=== PATIENT | female | born 1955 | race Caucasian/White ===

== ENCOUNTER 2018-02-04 20:20 | Inpatient (IN) | payer OTHER ==
[~2018-02-04] VITALS: Ht 160 cm; Wt 75.5 kg
[~2018-02-04 20:20] MED LIST: ACCUPRIL5 MG PO; ADVAIR 100/501 DISK IH; ADVAIR IH; ALBUTEROL PO; ALBUTEROL SULF8.5 GM IH; AMBIEN5 M1 PO; AMBIEN5 MG PO; AMITRIPTYLINE H50 M1 PO; AMITRIPTYLINE H50 MG PO; ASPIR 8181 M1 PO; AUGMENTIN875 MG PO; Advair HFA 115/21 IH; Ambien PO; Aspirin E.C. PO; Augmentin PO; BUPROPION HCL150 M2 PO; CEFTIN500 MG PO; CITALOPRAM HBR40 M1 PO; Duragesic TD; ELAVIL50 MG PO; ENDOCET 5-3251 EACH PO; Elavil PO; FISH OIL CONC1 EACH PO; FLORASTOR250 MG PO; Flexeril PO; GABAPENTIN300 MG PO; GLUCOPHAGE1000 MG PO; GLUCOPHAGE500 M1 PO; Glucophage PO; HYDROCODON-ACE1 EAC5 PO; JANUVIA100 MG PO; LISINOP/HCTZ TAB 20-; LOPRESSOR25 MG PO; LOW DOSE ASPIRI81 M2 PO; Levaquin PO; Lopressor PO; METOPROLOL SUCC25 MG PO; METOPROLOL TART25 MG PO; MOBIC15 MG PO; NEURONTIN300 MG PO; NOVOLIN INJ 70/30 SQ; NOVOLIN,HU100 UNITS/ SC; NOVOLOG MI100 UNIT/3 SQ; NOVOLOG MI100 UNIT/4 SQ; NOVOLOG MI100 UNIT/M SC; Neurontin PO; OMEGA-3 1,0001 EACH PO; OMEPRAZOLE20 M2 PO; Omega III EPA + DHA PO; PERCOCET 10/1 TABLET PO; PRADAXA150 MG PO; PRILOSEC20 MG PO; PRINIVIL5 MG PO; PROAIR HFA8.5 GM IH; PROTONIX40 MG PO; Percocet 5/325,Endoc PO; Pradaxa PO; Proventil,Ventolin H IH; SIMVASTATIN40 MG PO; SIMVASTATIN80 M1 PO; TYLENOL REGULA325 MG PO; VENTOLIN HFA18 GM IH; Wellbutrin SR PO; ZESTORETIC 20-1 EAC1 PO; ZETIA10 MG PO; ZOFRAN8 MG PO; ZOLPIDEM TARTRAT5 MG PO; Zestoretic,Prinzide PO; Zetia PO; celeXA PO
[2018-02-04 21:05] LABS: BASOPHIL (%) 0.4 % (0-1); BASOPHIL COUNT 0.1 K/uL (0-0.1); EOSINOPHIL (%) 0.5 % (0-5); EOSINOPHIL COUNT 0.1 K/uL (0-0.3); HEMATOCRIT 31.9 % (36.0-46.0); HEMOGLOBIN 10.1 G/DL (11.9-15.5); IMMATURE GRANULOCYTE (%) 0.3 % (0.0-0.7); LYMPHOCYTE (%) 23.5 % (15-42); LYMPHOCYTE COUNT 3.1 K/uL (1.0-2.8); MCH 25.7 PG (29.0-34.0); MCHC 31.7 G/DL (30.0-36.0); MCV 81.2 FL (83-99); MONOCYTE (%) 8.2 % (3-12); MONOCYTE COUNT 1.1 K/uL (0-0.8); NEUTROPHIL (%) 67.1 % (45-76); NEUTROPHIL COUNT 8.8 K/uL (1.8-6.4); PLATELET COUNT 298 K/uL (156-360); RBC DIS.WIDTH-CV 17.7 % (11.8-14.6); RBC DIS.WIDTH-SD 52.4 % (39-53); RED BLOOD COUNT 3.93 M/uL (3.80-5.20); WHITE BLOOD COUNT 13.1 K/uL (4.1-10.2)
[2018-02-04 21:15] LABS: CHLORIDE 107 mEq/L (99-109); POTASSIUM 4.8 mEq/L (3.7-5.4); SODIUM 137 mEq/L (136-147)
[2018-02-04 21:16] LABS: GLUCOSE 248 mg/dL (70-99)
[2018-02-04 21:20] LABS: CREATININE 0.9 mg/dL (0.6-1.3); GFR ESTIMATE (CALCULATED) > 59 mL/min/
[2018-02-04 21:21] LABS: UREA NITROGEN (BUN) 19 mg/dL (9-23)
[2018-02-04 21:27] LABS: TROP-I INTERPRETATION NEGATIVE; TROPONIN-I 0.01 ng/mL (0.0-0.30)
[2018-02-05] MEDS ORDERED: FLONASE16 G1 BOTH NARES (02:11)
[2018-02-05] MEDS ORDERED: LEVEMIR100 UNIT/2 SC (02:11)
[2018-02-05] MEDS ORDERED: VENTOLIN HFA18 GM IH (02:12)
[2018-02-05] MEDS ORDERED: ZANAFLEX4 MG PO (02:16)
[2018-02-05] MEDS ORDERED: EZETIMIBE10 MG PO (02:17)
[2018-02-05] MEDS ORDERED: PRADAXA150 MG PO (02:17)
[2018-02-05] MEDS ORDERED: XYZAL5 MG PO (02:21)
[2018-02-05] MEDS ORDERED: ADVAIR 250/501 DISK IH (02:22)
[2018-02-05 03:40] VITALS: BP 132/64
[2018-02-05 04:35] LABS: MCH 25.8 PG (29.0-34.0); MCHC 32.3 G/DL (30.0-36.0); MCV 80.1 FL (83-99); PLATELET COUNT 313 K/uL (156-360); RBC DIS.WIDTH-CV 17.4 % (11.8-14.6); RBC DIS.WIDTH-SD 50.7 % (39-53); RED BLOOD COUNT 3.87 M/uL (3.80-5.20); WHITE BLOOD COUNT 11.6 K/uL (4.1-10.2)
[2018-02-05 04:44] LABS: ALBUMIN 3.7 g/dL (3.2-4.8)
[2018-02-05 04:46] LABS: CHLORIDE 104 mEq/L (99-109); POTASSIUM 4.1 mEq/L (3.7-5.4); SODIUM 137 mEq/L (136-147)
[2018-02-05 04:47] LABS: TOTAL PROTEIN 6.7 g/dL (6.4-8.3)
[2018-02-05 04:48] LABS: GLUCOSE 237 mg/dL (70-99)
[2018-02-05 04:49] LABS: TOTAL BILIRUBIN 0.6 mg/dL (0.0-1.0)
[2018-02-05 04:50] LABS: ALKALINE PHOSPHATASE 73 IU/L (3-129)
[2018-02-05 04:52] LABS: AST (GOT) 13 IU/L (2-34); CREATININE 0.9 mg/dL (0.6-1.3); DIRECT BILIRUBIN 0.3 mg/dL (0.0-0.3); GFR ESTIMATE (CALCULATED) > 59 mL/min/
[2018-02-05 04:53] LABS: ALT (GPT) 15 IU/L (3-49); UREA NITROGEN (BUN) 19 mg/dL (9-23)
[2018-02-05 04:56] LABS: TROP-I INTERPRETATION NEGATIVE; TROPONIN-I 0.01 ng/mL (0.0-0.30)
[2018-02-05 07:56] LABS: THYROTROPIN (TSH) 1.5 MIU/L (0.4-5.5)
[2018-02-05 08:30] VITALS: BP 141/66
[2018-02-05 09:53] LABS: TROP-I INTERPRETATION NEGATIVE; TROPONIN-I < 0.01 ng/mL (0.0-0.30)
[2018-02-05 10:41] LABS: HEMOGLOBIN A1c (GLYCOHEMOGLOB) 12.8 % (Below 5.7)
[2018-02-05 12:36] VITALS: BP 149/67
[2018-02-05 16:20] VITALS: BP 124/60
[2018-02-05 21:00] VITALS: BP 144/64
[2018-02-06 01:05] VITALS: BP 114/55
[2018-02-06 05:27] VITALS: BP 136/62
[2018-02-06 08:00] VITALS: BP 130/60
[2018-02-06 08:33] LABS: HEMATOCRIT 33.2 % (36.0-46.0); HEMOGLOBIN 10.4 G/DL (11.9-15.5); MCH 24.9 PG (29.0-34.0); MCHC 31.3 G/DL (30.0-36.0); MCV 79.4 FL (83-99); PLATELET COUNT 355 K/uL (156-360); RBC DIS.WIDTH-CV 17.8 % (11.8-14.6); RBC DIS.WIDTH-SD 51.9 % (39-53); RED BLOOD COUNT 4.18 M/uL (3.80-5.20); WHITE BLOOD COUNT 14.6 K/uL (4.1-10.2)
[2018-02-06 08:53] LABS: ALBUMIN 3.9 G/DL (3.2-4.8); ALKALINE PHOSPHATASE 66 IU/L (3-129); ALT (GPT) 11 IU/L (3-49); AST (GOT) 11 IU/L (2-34); CHLORIDE 103 MEQ/L (99-109); CREATININE 0.8 MG/DL (0.6-1.3); GFR ESTIMATE (CALCULATED) > 59 mL/min/; GLUCOSE 192 mg/dL (70-99); POTASSIUM 4.1 MEQ/L (3.7-5.4); SODIUM 137 MEQ/L (136-147); TOTAL BILIRUBIN 0.5 MG/DL (0.0-1.0); TOTAL PROTEIN 6.8 G/DL (6.4-8.3)
[2018-02-06 08:54] LABS: UREA NITROGEN (BUN) 32 mg/dL (9-23)
[2018-02-06 12:00] VITALS: BP 124/57
[2018-02-06] MEDS ORDERED: NOVOLOG 10100 UNITS/ SC (14:34)
[2018-02-06] MEDS ORDERED: FUROSEMIDE40 MG PO (15:19)
[2018-02-06] MEDS ORDERED: LISINOPRIL20 MG PO (15:19)
[2018-02-06] MEDS ORDERED: LORATADINE10 M2 PO (15:19)
[2018-02-06] MEDS ORDERED: SPIRIVA RESPIMAT4 GM IH (15:19)
[2018-02-06] MEDS ORDERED: LEVEMIR100 UNIT/2 SC (15:20)
[2018-02-06 15:27] LABS: APPEARANCE CLEAR ((CLEAR)); BILIRUBIN NEGATIVE; BLOOD NEGATIVE; COLOR STRAW ((YELLOW)); GLUCOSE (STRIP) >=500; KETONES NEGATIVE; LEUKOCYTES NEGATIVE; NITRITE NEGATIVE; PROTEIN (STRIP) NEGATIVE; SPECIFIC GRAVITY 1.015 (1.000-1.030); UCUL ADDED? NO; UROBILINOGEN 0.2 MG/DL (0.2-1.0)
== END 2018-02-06 17:55 | disposition home health service (06) | DRG 292 ==
LOC: EME 20:20 → EDOF 02-05 02:24 → 4EAST 02-05 02:24 → ENRESERV 02-05 02:25 → 4EAST 02-05 03:42
PROVIDERS: Hospitalist; Physician Assistant
DX: I11.0 Hypertensive heart disease with heart failure (principal); I50.33 Acute on chronic diastolic (congestive) heart failure; E87.2 Acidosis; F33.9 Major depressive disorder, recurrent, unspecified; J44.0 Chronic obstructive pulmonary disease with (acute) lower respiratory infection; D50.8 Other iron deficiency anemias; E11.65 Type 2 diabetes mellitus with hyperglycemia; E78.00 Pure hypercholesterolemia, unspecified; E78.5 Hyperlipidemia, unspecified; F17.210 Nicotine dependence, cigarettes, uncomplicated; G89.29 Other chronic pain; I25.10 Atherosclerotic heart disease of native coronary artery without angina pectoris; I48.0 Paroxysmal atrial fibrillation; J20.9 Acute bronchitis, unspecified; K21.9 Gastro-esophageal reflux disease without esophagitis; E66.01 Morbid (severe) obesity due to excess calories; R06.03 Acute respiratory distress; G43.909 Migraine, unspecified, not intractable, without status migrainosus; M54.9 Dorsalgia, unspecified; I25.2 Old myocardial infarction; Z79.4 Long term (current) use of insulin; Z79.82 Long term (current) use of aspirin; Z85.6 Personal history of leukemia; Z90.710 Acquired absence of both cervix and uterus; Z91.19 Patient's noncompliance with other medical treatment and regimen; Z95.1 Presence of aortocoronary bypass graft; Z98.61 Coronary angioplasty status; Z68.29 Body mass index [BMI] 29.0-29.9, adult; Z79.51 Long term (current) use of inhaled steroids; Z82.0 Family history of epilepsy and other diseases of the nervous system; Z82.3 Family history of stroke; Z82.49 Family history of ischemic heart disease and other diseases of the circulatory system; Z83.3 Family history of diabetes mellitus
CPT/HCPCS: 71046; 71275; 80048; 80053; 80076; 81003; 82010; 82800; 82948; 83036; 83880; 84443; 84484; 85025; 85027; 85379; 87070; 87205; 87502; 93005; 93306; 94640; 94640 76; 99202; 99281; 99285; J1815; J1940; J2930; J7040